=== PATIENT | male | born 1975 | race Two or more races ===

== ENCOUNTER 2020-05-19 09:58 | Emergency (ER) | payer MEDICAID, SELFPAY ==
[~2020-05-19] VITALS: Ht 165.1 cm; Wt 65.8 kg
[~2020-05-19 09:58] MED LIST: NKM; ONDANSETRON ODT4 MG ORAL
[2020-05-19 10:28] VITALS: BP 130/80
--- NOTE | 2020-05-19 10:31 | NUR ---
came to er complaints of abdominal pain radiates to epigastric with nausea no vomiting waiting for md scherer
[2020-05-19] MEDS ORDERED: Lidocaine 2% Visc 15ml soln ORAL ONE (10:45)
[2020-05-19] MEDS ORDERED: Mylanta II UD 30ml ORAL ONE (10:45)
[2020-05-19] MEDS ORDERED: Dicyclomine HCl 10mg/5ml oral soln ORAL ONE (10:45)
[2020-05-19 10:46] LABS: BASOPHILS % (AUTO) 0.8 % (0.0-2.0); HEMATOCRIT 48.5 % (42.0-52.0); HEMOGLOBIN 15.9 G/DL (14.2-18.0); LYMPHOCYTES % (AUTO) 26.8 % (20.0-45.0); MEAN CORPUSCULAR VOLUME 90 FL (80-99); MONOCYTES % (AUTO) 5.8 % (1.0-10.0); NEUTROPHILS % (AUTO) 65.6 % (45.0-75.0); PLATELET COUNT 256 K/UL (150-450); RED BLOOD COUNT 5.39 M/UL (4.70-6.10); RED CELL DISTRIBUTION WIDTH 11.6 % (11.6-14.8); WHITE BLOOD COUNT 5.6 K/UL (4.8-10.8)
--- NOTE | 2020-05-19 10:54 | Emergency Room Report ---
History of Present Illness General Chief Complaint: Abdominal Pain Source: Patient Present Illness HPI 44-year-old male with no relevant past medical history here with 4 days of left lower quadrant pain and diarrhea. Patient says that his symptoms started insidiously and have been gradually worsening. Pain is located in the bilateral lower quadrants of his abdomen but worse in the left lower quadrant. Sharp in nature, comes and goes. Has not been taking any medications for the pain or diarrhea. Denies headaches, vision changes, fevers, chills, chest pain, palpitation, shortness of breath, back pain, nausea, vomiting, dysuria. Has had approximately 2-4 bowel movements per day, loose stool without bleeding. Allergies: Coded Allergies: No Known Allergies (Unverified , 12/07/12) COVID-19 Screening Contact w/high risk pt: No Experienced COVID-19 symptoms?: No COVID-19 Testing performed SCHOLARSHIP COUNSELOR: No Nursing Documentation-[facility] Past Medical History: No Stated History Review of Systems All Other Systems: negative except mentioned in HPI Physical Exam Vital Signs Date Time Temp Pulse Resp B/P (MAP) Pulse Ox O2 Delivery O2 Flow Rate FiO2 05/19/20 10:10 97.9 78 18 130/80 (97) 98 Room Air Sp02 EP Interpretation: reviewed, normal General Appearance: no apparent distress, alert, non-toxic Head: normocephalic, atraumatic Eyes: bilateral eye normal inspection, bilateral eye PERRL ENT: hearing grossly normal, normal pharynx, no angioedema, normal voice Neck: full range of motion, supple/symm/no masses Respiratory: chest non-tender, lungs clear, normal breath sounds, speaking full sentences Cardiovascular #1: regular rate, rhythm, no edema Cardiovascular #2: 2+ carotid (R), 2+ carotid (L), 2+ radial (R), 2+ radial (L), 2+ dorsalis pedis (R), 2+ dorsalis pedis (L) Gastrointestinal: normal bowel sounds, soft, non-distended, no guarding, no rebound, other - Mild left lower quadrant tenderness on palpation. No distention, rebound, guarding Rectal: deferred Genitourinary: normal inspection, no CVA tenderness Musculoskeletal: back normal, normal range of motion, gait/station normal, non- tender Neurologic: alert, motor strength/tone normal, oriented x3, sensory intact, responsive, speech normal Psychiatric: judgement/insight normal, memory normal, mood/affect normal, no suicidal/homicidal ideation Lymphatic: no adenopathy Medical Decision Making Diagnostic Impression: Primary Impression: Gastritis ER Course Laboratory Tests Test 05/19/20 10:15 White Blood Count 5.6 K/UL (4.8-10.8) Red Blood Count 5.39 M/UL (4.70-6.10) Hemoglobin 15.9 G/DL (14.2-18.0) Hematocrit 48.5 % (42.0-52.0) Mean Corpuscular Volume 90 FL (80-99) Mean Corpuscular Hemoglobin 29.5 PG (27.0-31.0) Mean Corpuscular Hemoglobin Concent 32.7 G/DL (32.0-36.0) Red Cell Distribution Width 11.6 % (11.6-14.8) Platelet Count 256 K/UL (150-450) Mean Platelet Volume 7.0 FL (6.5-10.1) Neutrophils (%) (Auto) 65.6 % (45.0-75.0) Lymphocytes (%) (Auto) 26.8 % (20.0-45.0) Monocytes (%) (Auto) 5.8 % (1.0-10.0) Eosinophils (%) (Auto) 1.0 % (0.0-3.0) Basophils (%) (Auto) 0.8 % (0.0-2.0) Sodium Level 140 MMOL/L (136-145) Potassium Level 4.0 MMOL/L (3.5-5.1) Chloride Level 103 MMOL/L (98-107) Carbon Dioxide Level 30 MMOL/L (21-32) Anion Gap 7 mmol/L (5-15) Blood Urea Nitrogen 15 mg/dL (7-18) Creatinine 0.8 MG/DL (0.55-1.30) Estimated Glomerular Filtration Rate > 60 mL/min (>60) Glucose Level 91 MG/DL (74-106) Calcium Level 9.3 MG/DL (8.5-10.1) Total Bilirubin 0.8 MG/DL (0.2-1.0) Aspartate Amino Transferase (AST) 20 U/L (15-37) Alanine Aminotransferase (ALT) 36 U/L (12-78) Alkaline Phosphatase 61 U/L (46-116) Total Protein 7.6 G/DL (6.4-8.2) Albumin 4.3 G/DL (3.4-5.0) Globulin 3.3 g/dL Albumin/Globulin Ratio 1.3 (1.0-2.7) Lipase 115 U/L (73-393) CT abdomen pelvis: No acute infection or diverticulitis. Gastric wall thickening consistent with likely gastritis 44-year-old male here with epigastric and generalized abdominal pain. Patient was hemodynamically stable and neurovascular intact in the emergency department. He received a GI cocktail, Pepcid, Toradol with complete resolution of his symptoms. Blood work largely unremarkable. CT abdomen pelvis showed evidence of thickened gastric wall consistent with possible gastritis however neoplastic wall thickening not excluded. Given patient's unremarkable work-up and vital signs neoplastic wall thickening highly unlikely. Much more likely gastritis which the patient then indicated that he has had before. Was given prescription for Pepcid, Carafate, Bentyl. Told to return with any worsening symptoms. He expressed understanding and was discharged. Last Vital Signs Date Time Temp Pulse Resp B/P (MAP) Pulse Ox O2 Delivery O2 Flow Rate FiO2 05/19/20 10:28 97.9 18 130/80 98 Room Air 05/19/20 10:28 78 Scripts Dicyclomine Hcl* (DICYCLOMINE HCL*) 10 Mg Capsule 10 MG ORAL TID, #10 CAP Prov: Dat Harrison M.D. 05/19/20 Famotidine* (Pepcid 20mg tablet*) 20 Mg Tablet 20 MG ORAL DAILY for Gerd, #30 TAB 0 Refills Prov: Dat Harrison M.D. 05/19/20 Sucralfate* (CARAFATE*) 1 Gm Tablet 1 GM ORAL FOUR TIMES A DAY for 7 Days, TAB Prov: Dat Harrison M.D. 05/19/20 Dat Harrison M.D. May 19, 2020 10:54
[2020-05-19 10:58] LABS: ALANINE AMINOTRANSFERASE 36 U/L (12-78); ALBUMIN 4.3 G/DL (3.4-5.0); ALBUMIN/GLOBULIN RATIO 1.3 (1.0-2.7); ALKALINE PHOSPHATASE 61 U/L (46-116); ANION GAP 7 mmol/L (5-15); ASPARTATE AMINO TRANSFERASE 20 U/L (15-37); BILIRUBIN,TOTAL 0.8 MG/DL (0.2-1.0); BLOOD UREA NITROGEN 15 mg/dL (7-18); CALCIUM 9.3 MG/DL (8.5-10.1); CARBON DIOXIDE 30 MMOL/L (21-32); CHLORIDE 103 MMOL/L (98-107); CREATININE 0.8 MG/DL (0.55-1.30); SODIUM 140 MMOL/L (136-145)
[2020-05-19] MEDS ORDERED: Ketorolac 30mg Inj IV ONE (11:00)
--- NOTE | 2020-05-19 12:30 | NUR ---
TO RADIOLOGY FOR CT ABDOMEN
--- NOTE | 2020-05-19 12:57 | Diagnostic Imaging Report ---
Indication: Abdominal pain Technique: CT of the abdomen and pelvis utilizing automated exposure control with intravenous contrast. Venous scanning performed. Axial, sagittal and coronal reformats presented. CT dose: Total DLP 201.6 mGycm; CTDI vol the 0.9 mGy Comparison: None Findings: Mild dependent atelectatic changes noted in the posterior lower lobes bilaterally. Partially imaged heart is normal in size. No pericardial effusion. There is a defect in the posterior crux of the left diaphragm with herniation of a small amount of fat. Hepatic contour is smooth. No focal hepatic mass lesion appreciated on this single phase exam. Portal veins appear patent. There no CT evident gallstones or appreciable biliary ductal dilatation. Posterior medial portions of the spleen approach the diaphragmatic defect. Otherwise spleen unremarkable. Adrenal glands and pancreas unremarkable. No peripancreatic inflammatory changes or fluid collections identified. Kidneys enhance symmetrically. There is no urinary tract stone or hydronephrosis. Bladder unremarkable overlying the degree of underdistention. Prostate borderline enlarged. There is no free intraperitoneal air or fluid. There is no evidence of small bowel obstruction. No focal inflammatory stranding noted within the mesenteric fat. The appendix is normal in caliber and there are no periappendiceal inflammatory changes. No significant colonic diverticula. There is thickening of the wall of the stomach. The abdominal aorta is normal in caliber. There is no pathologically enlarged/conglomerate lymphadenopathy. No acute osseous abnormality. IMPRESSION: * Thickening of the wall of the stomach which may be related to gastritis. Consider further evaluation with endoscopy as neoplastic wall thickening not excluded. * No evidence of appendicitis or diverticulitis. * No bowel obstruction, free air or free fluid. * Left diaphragmatic hernia containing fat. The CT scanner at [facility] is accredited by the [employer] and the scans are performed using protocols designed to limit radiation exposure to as low as reasonably achievable to attain images of sufficient resolution adequate for diagnostic evaluation.
--- NOTE | 2020-05-19 13:00 | NUR ---
BACK FROM CT FEELS BETTER
[2020-05-19] MEDS ORDERED: DICYCLOMINE HCL10 MG ORAL (13:17)
[2020-05-19] MEDS ORDERED: FAMOTIDINE20 MG ORAL (13:17)
[2020-05-19] MEDS ORDERED: CARAFATE1 G1 ORAL (13:17)
--- NOTE | 2020-05-19 15:11 | NUR ---
DISCHARGED HOME WITH instruction and rx follow up with pmd . saline lock dcd intact
[2020-05-19 15:13] VITALS: BP 130/80
== END 2020-05-19 15:14 | disposition home or self-care (01) ==
LOC: EMR 11:12
DX: K29.70 Gastritis, unspecified, without bleeding (principal)
CPT/HCPCS: 36415; 74177; 80053; 83690; 85025; 96361; 96374; J1885; J7030; Q9965; Z7502; 99284